=== PATIENT | male | born 1975 | race Caucasian/White ===

== ENCOUNTER 2018-05-18 13:11 | Emergency (ER) | payer SELFPAY ==
[~2018-05-18] VITALS: Ht 162.6 cm; Wt 59.0 kg
--- NOTE | 2018-05-18 13:18 | NUR ---
Patient to ER bed 06 to gown for evaluation. Side rails up.
[2018-05-18 13:26] VITALS: BP_SYST 144
--- NOTE | 2018-05-18 13:30 | NUR ---
PATIENT SITTING UP ON BED. AAOx3. RESPIRATIONS EVEN AND UNLABORED. DENIES OF ANY CHEST PAIN, SOB, HEADACHE, DIZZINESS, NAUSEA, OR VOMITING. NO FEVERS. PATIENT BIB BLS FOR ETOH. PATIENT NOTED WITH SLURRED SPEECH. ABLE TO ANSWER QUESTIONS AND FOLLOWS ALL COMMANDS. PT NOTED WITH AN UNSTEADY GAIT. PATIENT IN NO ACUTE DISTRESS. REST AND RELAXATION ENCOURAGED. SIDE RAILS UP x2. FALL PRECAUTIONS OBSERVED. WILL CONTINUE TO MONITOR.
--- NOTE | 2018-05-18 13:40 | NUR ---
ER Dr. STREET at bedside examining patient.
--- NOTE | 2018-05-18 14:00 | NUR ---
Patient resting quietly. No acute distress noted.
[2018-05-18 14:31] LABS: CREATININE 0.81 mg/dL (0.55-1.30); POTASSIUM 3.5 mmol/L (3.5-5.1)
[2018-05-18 14:36] LABS: ALBUMIN 4.3 g/dL (3.4-4.8); TOTAL BILIRUBIN 0.4 mg/dL (0.0-1.0)
[2018-05-18 14:42] LABS: PROTHROMBIN TIME 9.8 SECS (9.5-12.5)
[2018-05-18 14:44] LABS: HEMATOCRIT 40.5 % (36-54); HEMOGLOBIN 13.3 g/dL (14.0-18.0); MEAN CORPUSCULAR HEMOGLOBIN 31 pg (27-31); MEAN CORPUSCULAR VOLUME 95 fL (79.0-98.0); RED BLOOD CELL COUNT(AUTO) 4.28 MIL/uL (4.2-6.2); WHITE BLOOD COUNT (AUTO) 5.2 K/uL (4.8-10.8)
[2018-05-18 14:45] LABS: BASOPHILS % (AUTO) 0.8 % (0.0-2.0); EOSINOPHILS % (AUTO) 0.7 % (0.0-4.0); LYMPHOCYTES # (AUTO) 1.8 K/uL (1.0-5.5); LYMPHOCYTES % (AUTO) 35.8 % (20.5-51.5); MEAN CORPUSCULAR HGB CONC 33 % (32-36); MONOCYTES # (AUTO) 0.6 K/uL (0.0-1.0); MONOCYTES % (AUTO) 11.1 % (1.7-9.3); NEUTROPHILS # (AUTO) 2.7 K/uL (1.8-7.7); NEUTROPHILS % (AUTO) 51.6 % (40.0-70.0); PLATELET COUNT (AUTO) 263 K/uL (130-430); RED CELL DISTRIBUTION WIDTH 16.4 % (9.0-15.0)
--- NOTE | 2018-05-18 15:00 | NUR ---
PATIENT ASLEEP, BUT EASILY AROUSSABLE. PATIENT IN NO ACUTE DISTRESS. WILL CONTINUE TO MONITOR.
[2018-05-18] MEDS ORDERED: NACL 0.9% 1,000 ML IV ONE (15:15)
--- NOTE | 2018-05-18 15:50 | NUR ---
NORMAL SALINE IV FLUIDS STARTED PER MD ORDERS. TOLERATING WELL. WILL CONTINUE TO MONITOR.
--- NOTE | 2018-05-18 16:00 | NUR ---
Patient resting quietly. No acute distress noted.
[2018-05-18 16:48] LABS: BILIRUBIN,URINE NEGATIVE (NEGATIVE); BLOOD, URINE NEGATIVE (NEGATIVE); CLARITY/URINE CLEAR (CLEAR); COLOR,URINE YELLOW (YELLOW); GLUCOSE,URINE NEGATIVE (NEGATIVE); KETONES,URINE NEGATIVE (NEGATIVE); LEUKOCYTE ESTERASE ,URINE NEGATIVE (NEGATIVE); NITRITE, URINE NEGATIVE (NEGATIVE); PROTEIN URINE NEGATIVE (NEGATIVE); UROBILINOGEN,URINE 0.2 (0.2-1.0)
--- NOTE | 2018-05-18 17:00 | NUR ---
Patient resting quietly. No acute distress noted.
[2018-05-18 17:09] LABS: BARBITURATE, URINE NEGATIVE (NEG <=200); BENZODIAZEPINE, URINE POSITIVE (NEG <=150); CANNABINOID, URINE NEGATIVE (NEG <=50); COCAINE, URINE NEGATIVE (NEG <=150); METHAMPHETAMINES SCREEN,URINE NEGATIVE (NEG <=500); OPIATE, URINE NEGATIVE (NEG <=100); PHENCYCLIDINE SCREEN,URINE NEGATIVE (NEG <=25); UR TRICYCLIC ANTIDEPRESSANTS NEGATIVE (NEG <=300); URINE AMPHETAMINE NEGATIVE (NEG <=500); URINE METHADONE NEGATIVE (NEG <=200); URINE OXYCODONE SCREEN NEGATIVE (NEG <=100); URINE PROPOXYPHENE SCREEN NEGATIVE (NEG <=300)
--- NOTE | 2018-05-18 17:30 | NUR ---
PATIENT PULLED OUT HIS IV. RISK AND CONSEQUENCES EXPLAINED. PT VERBALIZED UNDERSTANDING. DRESSING APPLIED TO SITE. NO ACTIVE BLEEDING NOTED. DR. STREET MADE AWARE. NO NEW ORDERS GIVEN.
[2018-05-18 17:45] VITALS: BP_SYST 128
--- NOTE | 2018-05-18 18:00 | NUR ---
PATIENT SITTING UP ON BED. PATIENT IN NO ACUTE DISTRESS. PER DR. STREET ORDERS, REGULAR DINNER TRAY GIVEN. PATIENT CONSUMED 100% OF MEAL. WILL CONTINUE TO MONITOR.
--- NOTE | 2018-05-18 18:30 | NUR ---
PATIENT AMBULATED TO THE BATHROOM TO URINATE. NOTED WITH A STABLE GAIT. PATIENT AMBULATED BACK TO HIS BED. WILL CONTINUE TO MONITOR.
--- NOTE | 2018-05-18 18:53 | NUR ---
Pt eloped from ER at this time, pt pulled out his IV prior elopement, Dr Brown notified,
== END 2018-05-18 18:53 | disposition left against medical advice (07) ==
LOC: SED 13:11
DX: F10.129 Alcohol abuse with intoxication, unspecified (principal); Y90.8 Blood alcohol level of 240 mg/100 ml or more
CPT/HCPCS: 36415; 80053; 80307; 81003; 85025; 85610; 85730; 93005; 99284; G0482; J7030